=== PATIENT | male | born 1955 ===

== ENCOUNTER 2021-11-04 01:21 | Emergency (ER) | payer OTHER ==
[2021-11-04] MEDS ORDERED: ACETAMINOPHEN 500 MG TAB ONE (02:27)
--- NOTE | 2021-11-04 05:55 | EDPHYS ---
Physician Documentation [facility] Name: Yousif Dorado Age: 65 yrs Sex: Male : 1955 Arrival Date: 11/04/2021 Time: 01:24 Bed 20 Private MD: ED Physician Dl Mcfarland HPI: 11/04 02:17 This 65 yrs old Male presents to ER via Wheelchair with complaints of Head Injury mh7 Without LOC-Adult, Fall Injury. 02:17 The patient or guardian reports injury, swelling. The complaints affect the left side mh7 of forehead. Context of injury: The problem was sustained on a street or driveway, resulted from a fall, while walking. Onset: The symptoms/episode began/occurred just prior to arrival, today. Associated signs and symptoms: Loss of consciousness: This patient did not experience any loss of consciousness. Pertinent positives: patient admits to or smells of alcohol consumption, Pertinent negatives: biting tongue, dazed, double vision, incontinence, nausea, neck pain, seizure, shortness of breath, tinnitus, vomiting, weakness in extremities, generalized weakness. Severity of symptoms: At their worst the symptoms were moderate, earlier today, in the emergency department the symptoms have improved, moderately. Patient states that he tripped and fell onto ground. He admits to drinking a few beers tonight. Denies LOC or any symptoms prior to falling.. Historical: - Allergies: 01:55 No Known Allergies; kd3 - Home Meds: 01:55 lisinopril 10 mg Oral tab 1 tab once daily [Active]; kd3 - PMHx: 01:55 Hypertensive disorder; Chronic back pain; kd3 - PSHx: 01:55 None; kd3 - Immunization history:: Adult Immunizations up to date. - Social history:: Smoking status: unknown. - Immunization history: Last tetanus immunization: unknown. ROS: 02:17 Constitutional: Negative for fever, chills, and weight loss, ENT: Negative for injury, mh7 pain, and discharge, Neck: Negative for injury, pain, and swelling, Cardiovascular: Negative for chest pain, palpitations, and edema, Respiratory: Negative for shortness of breath, cough, wheezing, and pleuritic chest pain, Abdomen/GI: Negative for abdominal pain, nausea, vomiting, diarrhea, and constipation, Back: Negative for injury and pain, : Negative for injury, bleeding, discharge, and swelling, MS/Extremity: Negative for injury and deformity, Neuro: Negative for headache, weakness, numbness, tingling, and seizure, Psych: Negative for depression, anxiety, suicide ideation, homicidal ideation, and hallucinations, Allergy/Immunology: Negative for hives, rash, and allergies, Endocrine: Negative for neck swelling, polydipsia, polyuria, polyphagia, and marked weight changes, Hematologic/Lymphatic: Negative for swollen nodes, abnormal bleeding, and unusual bruising. Exam: 02:17 Constitutional: This is a well developed, well nourished patient who is awake, alert, mh7 and in no acute distress. 02:17 Eyes: Pupils equal round and reactive to light, extra-ocular motions intact. Lids and lashes normal. Conjunctiva and sclera are non-icteric and not injected. Cornea within normal limits. Periorbital areas with no swelling, redness, or edema. ENT: Nares patent. No nasal discharge, no septal abnormalities noted. Tympanic membranes are normal and external auditory canals are clear. Oropharynx with no redness, swelling, or masses, exudates, or evidence of obstruction, uvula midline. Mucous membranes moist. 02:17 Neck: Trachea midline, no thyromegaly or masses palpated, and no cervical lymphadenopathy. Supple, full range of motion without nuchal rigidity, or vertebral point tenderness. No Meningismus. Chest/axilla: Normal chest wall appearance and motion. Nontender with no deformity. No lesions are appreciated. Cardiovascular: Regular rate and rhythm with a normal S1 and S2. No gallops, murmurs, or rubs. Normal PMI, no JVD. No pulse deficits. Respiratory: Lungs have equal breath sounds bilaterally, clear to auscultation and percussion. No rales, rhonchi or wheezes noted. No increased work of breathing, no retractions or nasal flaring. Abdomen/GI: Soft, non-tender, with normal bowel sounds. No distension or tympany. No guarding or rebound. No evidence of tenderness throughout. Back: No spinal tenderness. No costovertebral tenderness. Full range of motion. Skin: Warm, dry with normal turgor. Normal color with no rashes, no lesions, and no evidence of cellulitis. MS/ Extremity: Pulses equal, no cyanosis. Neurovascular intact. Full, normal range of motion. Neuro: Awake and alert, GCS 15, oriented to person, place, time, and situation. Cranial nerves II-XII grossly intact. Motor strength 5/5 in all extremities. Sensory grossly intact. Cerebellar exam normal. Normal gait. Psych: Awake, alert, with orientation to person, place and time. Behavior, mood, and affect are within normal limits. 02:17 Head/face: Noted is hematoma, that is moderate, of the forehead, swelling, that is moderate, of the left side of forehead. 02:17 Eyes: 02:17 ENT: TM's: hemotympanum, is not appreciated, bilaterally. Vital Signs: 01:53 BP 139 / 82; Pulse 83; Resp 18; Temp 97.6; Pulse Ox 100% ; Weight 65.77 kg; Height 5 kd3 ft. 5 in. (165.10 cm); 06:03 BP 132 / 84; Pulse 81; Resp 17 S; Pulse Ox 100% on R/A; lg3 01:53 Body Mass Index 24.13 (65.77 kg, 165.10 cm) kd3 Hernshaw Coma Score: 01:57 Eye Response: spontaneous(4). Verbal Response: oriented(5). Motor Response: obeys kd3 commands(6). Total: 15. 02:17 Eye Response: spontaneous(4). Verbal Response: oriented(5). Motor Response: obeys mh7 commands(6). Total: 15. 05:50 Eye Response: spontaneous(4). Verbal Response: oriented(5). Motor Response: obeys mh7 commands(6). Total: 15. Trauma Score (Adult): 01:57 Eye Response: spontaneous(1); Verbal Response: oriented(1); Motor Response: obeys kd3 commands(2); Systolic BP: > 89 mm Hg(4); Respiratory Rate: 10 to 29 per min(4); Narinder Score: 15; Trauma Score: 12 MDM: 05:50 Differential diagnosis: Contusion of head, face, Hematoma on head, face, Intracranial mh7 bleed-. Data reviewed: vital signs, nurses notes, radiologic studies, CT scan. Data interpreted: Pulse oximetry: on room air is 100 %. Interpretation: normal. Counseling: I had a detailed discussion with the patient and/or guardian regarding: the historical points, exam findings, and any diagnostic results supporting the discharge/admit diagnosis, the presence of at least one elevated blood pressure reading (>120/80) during this emergency department visit, radiology results, the need for outpatient follow up, to return to the emergency department if symptoms worsen or persist or if there are any questions or concerns that arise at home. Response to treatment: the patient's symptoms have markedly improved after treatment. 05:54 Patient medically screened. [facility] 11/04 02:17 Order name: CT Head C Spine [facility] 11/04 02:17 Order name: CT Facial Bones W/O Con mh7 Administered Medications: : Drug: Tylenol 1000 mg Route: PO; lg3 02:23 Follow up: Response: No adverse reaction lg3 Disposition Summary: 11/04/21 05:54 Discharge Ordered Location: Home [facility] Problem: new mh7 Symptoms: have improved mh7 Condition: Stable mh7 Diagnosis - Fall on same level from slipping, tripping and stumbling with subsequent striking [facility] against object - Contusion, Hematoma of face [facility] Followup: [facility] - With: Private Physician - When: 1 - 2 days - Reason: Worsening of condition, Recheck today's complaints, Continuance of care, Re-evaluation by your physician Discharge Instructions: - Discharge Summary Sheet 7 - Hematoma, [id number] 7 - Facial or Scalp Contusion, [id number] [facility] Forms: - Medication Reconciliation Form 7 - Thank You Letter 7 - Antibiotic Education 7 - Prescription Opioid Use [facility] Signatures: Dispatcher [employer] Ivory Jones, RN RN lg3 Dl Mcfarland MD MD 7 Daina Conti RN RN kd3
--- NOTE | 2021-11-04 05:55 | ER ---
Nurse's Notes [facility] Name: Yousif Dorado Age: 65 yrs Sex: Male : 1955 Arrival Date: 11/04/2021 Time: 01:24 Bed 20 Private MD: Diagnosis: Fall on same level from slipping, tripping and stumbling with subsequent striking against object;Contusion, Hematoma of face Presentation: 11/04 01:53 Chief complaint: Patient's son or daughter states: He was walking outside and he kd3 tripped on the curb and hit his head on the concrete. he hit his left side of his head. Denies LOC. He is only complaining of back pain. He is at his normal baseline mental status. Coronavirus screen: Vaccine status: Patient reports receiving the 2nd dose of the covid vaccine. Ebola Screen: No symptoms or risks identified at this time. Initial Sepsis Screen: Does the patient meet any 2 criteria? No. Patient's initial sepsis screen is negative. Does the patient have a suspected source of infection? No. Patient's initial sepsis screen is negative. Risk Assessment: Do you want to hurt yourself or someone else? Patient reports no desire to harm self or others. Onset of symptoms was November 04, 2021. 01:53 Method Of Arrival: Wheelchair kd3 01:53 Acuity: LD 3 kd3 01:57 Care prior to arrival: None. Mechanism of Injury: Fall from standing position. Trauma kd3 event details: Injury occurred in the [facility]. Triage Assessment: 01:55 General: Appears in no apparent distress. Behavior is calm, cooperative. Pain: kd3 Complains of pain in left side of forehead. Trauma Activation: Not Applicable Physician: ED Physician; Name: ; Notified At: ; Arrived At: Physician: General Surgeon; Name: ; Notified At: ; Arrived At: Physician: Radiology; Name: ; Notified At: ; Arrived At: Physician: Respiratory; Name: ; Notified At: ; Arrived At: Physician: Lab; Name: ; Notified At: ; Arrived At: Historical: - Allergies: 01:55 No Known Allergies; kd3 - Home Meds: 01:55 lisinopril 10 mg Oral tab 1 tab once daily [Active]; kd3 - PMHx: 01:55 Hypertensive disorder; Chronic back pain; kd3 - PSHx: 01:55 None; kd3 - Immunization history:: Adult Immunizations up to date. - Social history:: Smoking status: unknown. - Immunization history: Last tetanus immunization: unknown. Screenin:57 Abuse screen: Denies threats or abuse. Denies injuries from another. Nutritional kd3 screening: No deficits noted. Tuberculosis screening: No symptoms or risk factors identified. Fall Risk Fall in past 12 months (25 points). Primary Survey: :57 NO uncontrolled hemorrhage observed. A: The client is awake and alert. The airway is kd3 patent. The client is alert. Airway: patent. Breathing/Chest: Spontaneous respiratory effort, equal unlabored respirations, breath sounds clear bilaterally, regular pattern, symmetrical chest rise and fall. Respiratory effort: spontaneous, unlabored, Breath sounds: clear. Circulation: No external hemorrhage present. Regular and strong central pulse, skin warm/dry/normal color. Disability Pupils are equal, round, reactive to light and accommodation. Exposure/Environment: There is no evidence of uncontrolled external bleeding. 02:27 Reassessment Alertness and Airway: Awake and alert. The airway is patent. Breathing: lg3 Spontaneous respiratory effort, equal unlabored respirations, breath sounds clear bilaterally, regular pattern with symmetrical chest rise and fall. Respiratory effort Spontaneous Unlabored Breath sounds Clear Respiratory pattern Regular Circulation: No external hemorrhage noted. Regular and strong central pulse, skin warm/dry/normal color. Disability: Pupils Pupils are equal, round, reactive to light and accomodation. Alert Verbal stimuli. Assessment: 02:24 General: Appears in no apparent distress. comfortable, Behavior is calm, cooperative. lg3 Pain: Complains of pain in left side of forehead. Neuro: No deficits noted. Level of Consciousness is awake, alert, obeys commands, Oriented to person, place, time, situation, Speech is normal. Cardiovascular: No deficits noted. Denies chest pain, shortness of breath, Capillary refill < 3 seconds Clubbing of nail beds is absent JVD is absent Patient's skin is warm and dry. Respiratory: No deficits noted. Airway is patent Trachea midline Respiratory effort is even, unlabored, Respiratory pattern is regular, symmetrical, Breath sounds are clear bilaterally. GI: No deficits noted. No signs and/or symptoms were reported involving the gastrointestinal system. Abdomen is flat, non-distended, Patient currently denies nausea, vomiting. : No deficits noted. No signs and/or symptoms were reported regarding the genitourinary system. EENT: No deficits noted. No signs and/or symptoms were reported regarding the EENT system. Denies blurred vision. Derm: Skin is intact, is healthy with good turgor, Skin is dry, Skin temperature is warm hematoma noted to left lower forehead. Musculoskeletal: No deficits noted. Circulation, motion, and sensation intact. Range of motion: intact in all extremities. 03:33 Reassessment: Patient appears in no apparent distress at this time. No changes from lg3 previously documented assessment. Patient and/or family updated on plan of care and expected duration. Pain level reassessed. Patient is alert, oriented x 3, equal unlabored respirations, skin warm/dry/pink. 04:39 Reassessment: Patient appears in no apparent distress at this time. No changes from lg3 previously documented assessment. pt quietly resting with family at bedside. Vital Signs: 01:53 BP 139 / 82; Pulse 83; Resp 18; Temp 97.6; Pulse Ox 100% ; Weight 65.77 kg; Height 5 kd3 ft. 5 in. (165.10 cm); 06:03 BP 132 / 84; Pulse 81; Resp 17 S; Pulse Ox 100% on R/A; lg3 01:53 Body Mass Index 24.13 (65.77 kg, 165.10 cm) kd3 Oelrichs Coma Score: 01:57 Eye Response: spontaneous(4). Verbal Response: oriented(5). Motor Response: obeys kd3 commands(6). Total: 15. 02:17 Eye Response: spontaneous(4). Verbal Response: oriented(5). Motor Response: obeys mh7 commands(6). Total: 15. 05:50 Eye Response: spontaneous(4). Verbal Response: oriented(5). Motor Response: obeys mh7 commands(6). Total: 15. Trauma Score (Adult): 01:57 Eye Response: spontaneous(1); Verbal Response: oriented(1); Motor Response: obeys kd3 commands(2); Systolic BP: > 89 mm Hg(4); Respiratory Rate: 10 to 29 per min(4); Oelrichs Score: 15; Trauma Score: 12 ED Course: 01:24 Patient arrived in ED. bp1 01:53 Dl Mcfarland MD is Attending Physician. mh7 01:55 Triage completed. kd3 01:55 Arm band placed on right wrist. kd3 01:57 Patient has correct armband on for positive identification. kd3 01:57 Patient maintains SpO2 saturation greater than 95% on room air. kd3 02:19 Ivory Trevizo, RN is Primary Nurse. lg3 02:24 Client placed on continuous cardiac and pulse oximetry monitoring. NIBP monitoring lg3 applied. Door closed. Noise minimized. Warm blanket given. Family accompanied patient. 02:28 Thermoregulation: warm blanket given to patient. lg3 03:07 CT Head C Spine In Process Unspecified. EDMS 03:07 CT Facial Bones W/O Con In Process Unspecified. EDMS 06:02 No provider procedures requiring assistance completed. Patient did not have IV access lg3 during this emergency room visit. Administered Medications: 02:23 Drug: Tylenol 1000 mg Route: PO; lg3 02:23 Follow up: Response: No adverse reaction lg3 Medication: 06:03 VIS not applicable for this client. lg3 Intake: 06:03 PO: 100ml (Water); Total: 100ml. lg3 Output: 06:03 Urine: 120ml (Voided); Total: 120ml. lg3 Outcome: 05:54 Discharge ordered by . 7 06:02 Discharged to home ambulatory, with family. lg3 06:02 Condition: stable 06:02 Discharge instructions given to patient, family, Instructed on discharge instructions, safety practices, Demonstrated understanding of instructions. 06:03 Patient's length of stay in the Emergency Department was greater than 2 hours. lg3 06:04 Patient left the ED. lg3 Signatures: Dispatcher [employer] EDMS Ivory Trevizo, RN RN lg3 Malaika Cuellar bp1 Dl Mcfarland MD MD 7 Daina Conti RN RN 3
[2021-11-04 06:11] VITALS: TEMP 97.6; O2SAT 100
[2021-11-04 06:13] VITALS: BP 132/84
--- NOTE | 2021-11-05 20:27 | RAD REPORT ---
EXAM DESCRIPTION: CT - [id number] - 11/04/2021 7:41 am CLINICAL HISTORY: The patient is 65 years old and is Male; trauma TECHNIQUE: Axial computed tomography images of the head/brain and cervical spine without intravenous contrast. Sagittal and coronal reformatted images were created and reviewed. This CT exam was pe rformed using one or more of the following dose reduction techniques: automated exposure control, a djustment of the mA and/or kV according to patient size, and/or use of iterative reconstruction techn ique. COMPARISON: No relevant prior studies available. FINDINGS: Brain: Mild cerebral atrophy. No hemorrhage. No significant white matter disease. Ventricles: Unremarkable. No ventriculomegaly. Skull: No acute fracture. Sinuses: Unremarkable as visualized. No acute sinusitis. Mastoid air cells: Unremarkable as visualized. No mastoid effusion. Vertebrae: Unremarkable. No acute fracture. Normal alignment. Discs/spinal canal/neural foramina: No acute findings. No spinal canal stenosis. Soft tissues: Left frontal scalp swelling. IMPRESSION: No acute intracranial abnormality. No acute findings in the cervical spine. Electronically signed by: Kaushik Graff MD 11/04/2021 5:27 AM CDT Due to temporary technical issues with the PACS/Fluency reporting system, reports are being signed by the in house radiologists without review as a courtesy to insure prompt reporting. The interpreting radiologist is fully responsible for the content of the report.
--- NOTE | 2021-11-05 20:29 | RAD REPORT ---
EXAM DESCRIPTION: CT - Facial Bones W/ Mpr - 11/04/2021 7:41 am CLINICAL HISTORY: The patient is 65 years old and is Male; Facial trauma, blunt TECHNIQUE: Axial computed tomography images of the face without intravenous contrast. Sagittal and coronal reformatted images were created and reviewed. This CT exam was performed using one or more of the following dose reduction techniques: automated exposure control, adjustment of the mA and/o r kV according to patient size, and/or use of iterative reconstruction technique. COMPARISON: No relevant prior studies available. FINDINGS: BONES/JOINTS: The orbital floors and vivas are intact. The zygomatic arches and pteryg oid plates are intact. The visualized maxilla and mandible are intact. SOFT TISSUES: Left frontal scalp and left periorbital soft tissue swelling and hematoma formation is present. ORBITS: The globes, extraocular muscles, and optic nerve complexes are within normal limits. SINUSES: The visualized paranasal sinuses are clear. No air-fluid levels. NASAL CAVITY/SEPTUM: The nasal bones are intact. IMPRESSION: 1. No acute facial fracture. 2. Large left frontal scalp and periorbital hematoma. Electronically signed by: Aziza Bustillo MD 11/04/2021 5:13 AM CDT Due to temporary technical issues with the PACS/Fluency reporting system, reports are being signed by the in house radiologists without review as a courtesy to insure prompt reporting. The interpreting radiologist is fully responsible for the content of the report.
== END 2021-11-04 06:04 | disposition home or self-care (01) ==
LOC: ER 01:21
DX: S00.83XA Contusion of other part of head, initial encounter (principal); W01.10XA Fall on same level from slipping, tripping and stumbling with subsequent striking against unspecified object, initial encounter; I10 Essential (primary) hypertension
CPT/HCPCS: 70450; 70486; 72125; 76377; 99284